=== PATIENT | male | born 1965 | race Caucasian/White ===

== ENCOUNTER 2023-11-29 02:25 | Emergency (ER) | payer BC ==
[2023-11-29] MEDS ORDERED: Lidocaine 1% 5 ML VIAL INJECT ONE (02:46)
[2023-11-29] MEDS ORDERED: Take Home: Acetaminophen/oxyCODONE 325-5 MG, 5 Tab Pack PO ONE (03:00)
[2023-11-29] MEDS ORDERED: Sulfamethoxazole/Trimethoprim 800-160 MG Tab PO ONE (03:01)
[2023-11-29] MEDS ORDERED: Take Home: Sulfamethoxazole/Trimethoprim 800-160 MG Tab, 6 Tab Pack PO ONE (03:01)
== END 2023-11-29 03:15 | disposition home or self-care (01) ==
LOC: DL.ED 02:25
DX: K04.7 Periapical abscess without sinus (principal); Z79.899 Other long term (current) drug therapy
CPT/HCPCS: 99282; A9270-GY; J3490